=== PATIENT | female | born 1975 | race Two or more races ===

== ENCOUNTER 2021-12-03 10:39 | Emergency (ER) | payer SELFPAY ==
[~2021-12-03] VITALS: Ht 165.1 cm; Wt 115.6 kg
[2021-12-03] MEDS ORDERED: KETOROLAC 30 MG/ML VIAL. IM ONE (11:45)
[2021-12-03] MEDS ORDERED: diphenhydrAMINE 50 MG/ML VIAL IM ONE (11:45)
[2021-12-03] MEDS ORDERED: PROCHLORPERAZINE 10 MG/2 ML VIAL. IM ONE (11:45)
[2021-12-03 11:49] VITALS: BP 173/91
--- NOTE | 2021-12-03 12:23 | PHYS DOC ---
Past Medical History Past Medical History: No Pertinent History (KOURTNEY NI) Past Surgical History: (KOURTNEY NI) Smoking Status: Never Smoker Alcohol Use: None Drug Use: None (KOURTNEY NI) General Adult EDM: Chief Complaint: HEADACHE HPI: HPI: Patient is a 46 year old female who presents with headache that began on Thursday. Patient reports that she has headaches/migraines associated with her menstruation. She reports associated photophobia, phonophobia, nausea and 2 episodes of emesis. Patient states that she has gotten these headaches for the past 14 years. Patient has not had evaluation by neurology in the past. She denies any other complaints at this time (KOURTNEY NI) Review of Systems: Review of Systems: Constitutional: Denies fever, chills or generalized weakness Eyes: Denies change in visual acuity, visual field deficits or discharge HENT: Denies ear pain, nasal congestion or sore throat Respiratory: Denies cough or shortness of breath Cardiovascular: Denies chest pain, palpitations or edema GI: See HPI : Denies dysuria or hematuria Musculoskeletal: Denies back pain or joint pain Integument: Denies rash or other skin lesion Neurologic: See HPI (KOURTNEY NI) Heart Score: C/O Chest Pain: No (KOURTNEY NI) Current Medications: Current Medications Medications (Trade) Dose Ordered Sig/Traci Start Time Stop Time Status Last Admin Dose Admin Diphenhydramine HCl (Benadryl) 25 mg 1X ONCE 12/03/21 11:45 12/03/21 11:46 DC 12/03/21 11:36 25 MG Ketorolac Tromethamine (Toradol 30mg Vial) 30 mg 1X ONCE 12/03/21 11:45 12/03/21 11:46 DC 12/03/21 11:36 30 MG Prochlorperazine Edisylate (Compazine) 10 mg 1X ONCE 12/03/21 11:45 12/03/21 11:46 DC 12/03/21 11:35 10 MG (KOURTNEY NI) Allergies: Allergies: Allergies Coded Allergies Type Severity Reaction Last Updated Verified No Known Drug Allergies 12/03/21 No (KOURTNEY NI) Physical Exam: PE: Constitutional: Well developed, well nourished, no acute distress, non-toxic appearance. HENT: Normocephalic, atraumatic, bilateral external ears normal, nose normal. Eyes: PERRL, EOMI, conjunctiva normal, no discharge. Neck: Normal range of motion, no stridor. Skin: Warm, dry, no erythema, no rash. Extremities: No cyanosis, no clubbing, ROM intact, no edema. Neurologic: Alert and oriented x4, normal motor function, normal sensory function, no focal deficits noted. (KOURTNEY NI) Current Patient Data: Vital Signs: Vital Signs Date Time Temp Pulse Resp B/P (MAP) Pulse Ox O2 Delivery O2 Flow Rate FiO2 12/03/21 11:49 78 18 100 12/03/21 10:54 98.6 179/98 (125) 98.6 (KOURTNEY NI) Course & Med Decision Making: Course & Med Decision Making Pertinent Labs and Imaging studies reviewed. (See chart for details) Patient symptoms are much improved after medication administration. She was advised to follow with neurology for evaluation and management of recurrent headaches. Return precautions were provided. Patient understands and is agreeable to discharge plan. (KOURTNEY NI) Dragon Disclaimer: Dragon Disclaimer: This electronic medical record was generated, in whole or in part, using a voice recognition dictation system. (KOURTNEY NI) Departure Departure Impression: Primary Impression: Headache, menstrual migraine Qualified Codes: G43.821 - Menstrual migraine, not intractable, with status migrainosus Additional Impression: Elevated blood pressure reading Disposition: HOME / SELF CARE / HOMELESS Condition: IMPROVED Referrals: NO PCP (PCP) DMITRI RED MD Patient Instructions: How to Take Your Blood Pressure, [id number], Migraine Headache, [id number] Additional Instructions: Mantiene un record de los niveles de presion para howard doctor familiar. Es possible que usted necesita medicamentos para tratar la presion bea. Puede llamar a la especialista para los aurelio de madalyn para mas evaluacion y tratamiento tambien. INSTRUCCIONES GENERALES DE BEA DEL DEPARTAMENTO DE EMERGENCIA Omer por venir hoy al Departamento de Emergencias (ED) de [facility] y confiarnos howard atencin. Confiamos en que haya tenido adriano experiencia positiva en nuestro Departamento de Emergencias. Si desea hablar con la gerencia del departamento, puede llamar al director al . SEBASTIEN INSTRUCCIONES DE SEGUIMIENTO SON LAS SIGUIENTES: 1. Rashard un seguimiento con howard mdico de atencin primaria. Si no tiene un mdico de cabecera, solicite adriano lista de recursos de mdicos o clnicas que puedan ayudarlo con la atencin de seguimiento. 2. El proveedor de emergencia mckeon interpretado sebastien estudios de imgenes, si se ordenaron. El especialista en imgenes de radiologa tambin los cayetano. Si hay un cambio en los hallazgos, se le notificar en 48 horas cuando sea posible. 3. Si se mckeon realizado adriano prueba de laboratorio o un cultivo, se revisarn sebastien resultados y se le notificar si necesita un cambio en el tratamiento. 4. Siga las instrucciones verbalizadas y consulte las copias impresas si es necesario. INSTRUCCIONES E INFORMACIN ADICIONALES: 1. Howard atencin hoy mckeon sido supervisada por un mdico especialmente capacitado en atencin de emergencia. Muchos problemas requieren ms de adriano evaluacin para un diagnstico y tratamiento completos. Le recomendamos que programe howard mahi de seguimiento segn lo recomendado para garantizar el tratamiento completo de howard enfermedad o lesin. Si no puede obtener atencin de seguimiento y contina teniendo un problema, o si howard condicin empeora, le recomendamos que regrese al servicio de urgencias. 2. No podemos determinar de manera rivera howard condicin por telfono ni podemos juan consejos mdicos slidos por telfono. Por estas razones de seguridad, si llama para pedir consejo mdico, le pediremos que vaya al servicio de urgencias para adriano evaluacin adicional. 3. Si tiene alguna pregunta sobre estas instrucciones de bea, llame al ED al . INFORMACIN DE SEGURIDAD: En inters de la seguridad, el bienestar y la prevencin de lesiones; le recomendamos que use howard cinturn de seguridad, si fuma; bastante fumador, y alentamos a la yessica a usar un julia protector para andar en bicicleta y otros eventos deportivos que presenten un mayor riesgo de lesiones en la madalyn. SI SEBASTIEN SNTOMAS EMPEORAN O SE DESARROLLAN NUEVOS SNTOMAS, O SI TIENE PREOCUPACIONES SOBRE HOWARD CONDICIN; O SI HOWARD CONDICIN EMPEORA MIENTRAS ESPERA HOWARD MAHI DE SEGUIMIENTO; PNGASE EN CONTACTO CON HOWARD MDICO DE ATENCIN PRIMARIA, EL MDICO CUYO NOMBRE Y NMERO LE DIERON, O REGRESE AL ED INMEDIATAMENTE. Attending Signature I have participated in the care of this patient and I have reviewed and agree with all pertinent clinical information above including history, exam, and recommendations. (CARLOS SIMPSON DO) KOURTNEY NI Dec 03, 2021 12:23 CARLOS SIMPSON DO Dec 05, 2021 13:59
== END 2021-12-03 12:43 | disposition home or self-care (01) ==
LOC: ER 10:39
DX: G43.821 Menstrual migraine, not intractable, with status migrainosus (principal); R03.0 Elevated blood-pressure reading, without diagnosis of hypertension
CPT/HCPCS: 96372; 99284; J0780; J1200; J1885